=== PATIENT | female | born 1990 | race African-American/Black ===

== ENCOUNTER 2016-05-17 07:11 | Day surgery (SDC) ==
[2016-05-17] MEDS ORDERED: TRANSDERM-SCOP ONE (07:12)
[2016-05-17] MEDS ORDERED: REGLAN ONE (07:12)
[2016-05-17] MEDS ORDERED: PEPCID ONE (07:12)
[2016-05-17] MEDS ORDERED: LR 1,000 ML ONE ×2 (07:12→12:58)
[2016-05-17] MEDS ORDERED: BACITRACIN ONE (07:14)
[2016-05-17] MEDS ORDERED: KEFZOL 2 GM/D5W 50 ML ONE (07:14)
[2016-05-17] MEDS ORDERED: FENTANYL ONE (07:30)
[2016-05-17] MEDS ORDERED: DIPRIVAN 1% ONE (07:31)
[2016-05-17] MEDS ORDERED: VERSED ONE (07:34)
[2016-05-17] MEDS: KEFZOL 1 GM/D5W 50 ML ONE ×2 (11:19→11:50)
[2016-05-17] MEDS ORDERED: XYLOCAINE-MPF 2% ONE (13:16)
[2016-05-17] MEDS ORDERED: ROBINUL ONE (13:16)
[2016-05-17] MEDS ORDERED: ZOFRAN ONE (13:16)
[2016-05-17] MEDS ORDERED: NEOSTIGMINE ONE (13:16)
[2016-05-17] MEDS ORDERED: DECADRON ONE (13:16)
[2016-05-17] MEDS ORDERED: LUBRIFRESH PM OPH OINTMENT ONE (13:16)
[2016-05-17] MEDS ORDERED: NORCURON ONE (13:16)
[2016-05-17] MEDS ORDERED: QUELICIN (DOSE) ONE (13:16)
[2016-05-17] MEDS ORDERED: LR 3,000 ML ONE (13:16)
[2016-05-17] MEDS ORDERED: NORCO-10 ONE ×2 (13:40→15:57)
[2016-05-17] MEDS ORDERED: PHENERGAN ONE (13:40)
[2016-05-17 17:59] VITALS: BP 112/75
--- NOTE | 2016-05-17 18:29 | OPERATIVE NOTE ---
PROCEDURE DATE: 05/17/2016 PROCEDURE: Bilateral reduction mammoplasty. SURGEON: Dr. Cathy MD. ICD-10 DIAGNOSIS CODE: For this case is N62, breast hypertrophy, M53.82, pain in the C-spine[place]: [place] [address], reduction mammoplasty and 22854-04 reduction mammoplasty of the other side. INDICATION FOR PROCEDURE: This patient is a 25-year-old, black female with large, heavy saggy breasts. She is an excellent candidate for bilateral reduction mammoplasty to relieve the strain in her back, neck and shoulders and she was seen in the office for informed consent for this procedure on 05/11/2016. At that point, she understood that she would have her breast reduction and the goal of the procedure was to reduce the size, shape and weight of her breasts. She understood that exact pain relief cannot be guaranteed. She understood that exact bra cup size changes cannot be guaranteed. She knows the risks include infection, blood loss, blood clots in legs, heart problems, lung problems, allergic reactions, or blood and serum collections in the operative sites that might require drainage. She understands exact size and shape of her breast cannot be guaranteed. She knows where her skin incisions will be around the areola and from the areola to the inframammary fold and within the inframammary fold that is where the scars will be. She understands the nipples will be transferred as pedicled nipples. There can be poor blood supply to the nipples and poor wound healing. She knows her nipple sensation can be decreased after this operation. She knows that in the future can alter size and shape of her breasts and she knows that in the future she might not be able breastfeed. She knows she has to have mammograms in the future. PROCEDURE: The patient was brought to the operating room, after she was marked in outpatient surgery in sitting position. She went to the operating room, had general anesthesia, and was prepped and draped. The crucial corners of markings were tattooed with blue dye and then the nipples marked with a 38 mm nipple areola marker and inferior pedicles that were 10 cm wide at the base were drawn on each breast. Both breasts were done in a similar fashion. The inferior pedicles were de-epithelialized. Then the upper breast skin flaps were incised with a knife and then dissected with electrocautery to make upper breast implants approximately a centimeter and a half thick. Medial, central, and lateral breast segments were then resected. The breasts were irrigated with bacitracin solution. Hemostasis was achieved with electrocautery. The pedicles were tacked medially with 2-0 Polysorb sutures to keep them centralized, then she was tacked closed over drains with silk sutures. She was put in the sitting position. The size and shape of the breasts was found to be good except for the need to remove some additional tissue from the right pedicle and that was done. She was then closed with 3-0 interrupted Polysorb sutures at the junction of the flaps followed by a running 3-0 Polysorb deep dermal suture, followed by running 4- 0 Biosyn subcuticular stitch. The drains were secured to silk drain stitches. She was put back in the sitting position. The left nipple exit was marked with a 38 mm nipple areolar marker. This was de-epithelialized then cut in a cruciate excision to allow protrusion of the nipples. The nipples were inset with 3-0 and 4-0 Polysorb interrupted deep dermal sutures, followed by running 4-0 Biosyn subcuticular stitch. The total amount of resection for the right breast was 713 g. The total amount of resection for the left breast was 619 g. She tolerated the procedure well and was transported to the recovery room in good condition.
== END 2016-05-17 17:50 | disposition home or self-care (01) ==
LOC: OPS 07:11 → EEVIPCON 07:30 → OPS 17:50
PROVIDERS: ATTEND Surgery Plastic and Reconstructive Surgery
DX: Z41.1 Encounter for cosmetic surgery (principal)
CPT/HCPCS: 81025; 88305; J0330; J0690; J1100; J2250; J2405; J3010; J7120; J2710